=== PATIENT | female | born 1950 | race Caucasian/White ===

== ENCOUNTER 2022-01-14 10:07 | Day surgery (SDC) | payer MEDICARE, MEDICAID ==
[2022-01-14] VITALS (10 sets, daily range): BP systolic 116–178; BP diastolic 63–117
[~2022-01-14] VITALS: Ht 160 cm; Wt 132.6 kg
[~2022-01-14 10:07] MED LIST: BUDE10.2 INH; CITA20TA28 PO; CYCL-394 PO; DIVA125T13 PO; LORA-641 PO; LOSA100T57 PO; MAG SULFATE PO; METF500T PO; MOT200T PO; PER5325T PO; PROTANDIM; ZINC PO; [UNRECOGNIZED DRUG - OTHER]
[2022-01-14] MEDS ORDERED: MIDAZolam 1mg/ml 10ml vial IV ONE (10:35)
[2022-01-14] MEDS ORDERED: normal saline 1000ml 1,000 ML IV SCH (10:35)
[2022-01-14] MEDS ORDERED: fentaNYL/PF 50MCG/1 ML 2ML syringe IV ONE (10:35)
[2022-01-14] MEDS ORDERED: CARB10DR6 OP (10:53)
[2022-01-14] MEDS ORDERED: ALB0.5UD IH (10:53)
[2022-01-14] MEDS ORDERED: HYDR-3973 PO (10:53)
[2022-01-14] MEDS ORDERED: ROSU10TA28 PO (10:53)
[2022-01-14] MEDS ORDERED: TRIA16.922 BOTHNARES (10:53)
[2022-01-14] MEDS ORDERED: APIX5TAB3 PO (10:53)
[2022-01-14] MEDS ORDERED: DILT120T3 PO (10:53)
[2022-01-14] MEDS ORDERED: AZEL6DRO5 EACHEYE (10:53)
[2022-01-14] MEDS ORDERED: CELE100C98 PO (10:53)
[2022-01-14] MEDS ORDERED: [UNRECOGNIZED DRUG - MIXTURE] PO (10:53)
[2022-01-14] MEDS ORDERED: SOTA80TA73 PO (10:53)
[2022-01-14] MEDS ORDERED: LINA5TAB4 PO (10:53)
[2022-01-14 11:18] LABS: BASOPHILS # (AUTO) 0.1 X10'3 (0-0.2); BASOPHILS % (AUTO) 0.9 % (0-1); EOSINOPHILS # (AUTO) 0.5 X10'3 (0-0.9); EOSINOPHILS % (AUTO) 4.3 % (0-6); HEMOGLOBIN 13.9 g/dl (12.0-16.0); LYMPHOCYTES # (AUTO) 3.4 X10'3 (1.1-4.8); LYMPHOCYTES % (AUTO) 31.1 % (21-51); MEAN CORPUSCULAR HEMOGLOBIN 29.3 PG (27.0-31.0); MEAN CORPUSCULAR VOLUME 88.6 FL (78-98); MEAN PLATELET VOLUME 8.9 FL (7.4-10.4); MONOCYTES # (AUTO) 0.9 X10'3 (0-0.9); NEUTROPHILS # (AUTO) 6.1 X10'3 (1.8-7.7); NEUTROPHILS % (AUTO) 55.7 % (42-75); PLATELET COUNT 297 X10'3 (140-440); RED BLOOD COUNT 4.74 X10'6 (4.20-5.60); RED CELL DISTRIBUTION WIDTH 13.8 % (11.5-14.5)
[2022-01-14 11:29] LABS: ALBUMIN 3.5 G/DL (3.4-5.0); ANION GAP 11 (8-16); BLOOD UREA NITROGEN 14 MG/DL (7-18); BUN/CREATININE RATIO 14.4 (6.6-38.0); CHLORIDE 106 MMOL/L (99-107); CREATININE 0.97 MG/DL (0.40-0.90); GLUCOSE 158 MG/DL (70-104); POTASSIUM 4.6 MMOL/L (3.5-5.1); SODIUM 142 MMOL/L (135-145); TOTAL CARBON DIOXIDE 25.3 MMOL/L (24-32); eGFR 57 ML/MIN
== END 2022-01-14 14:55 | disposition home or self-care (01) ==
LOC: SSTAY O 10:07
PROVIDERS: ATTEND Student in an Organized Health Care Education/Training Program
DX: I48.91 Unspecified atrial fibrillation (principal); E11.9 Type 2 diabetes mellitus without complications; I10 Essential (primary) hypertension; Z88.0 Allergy status to penicillin; Z88.8 Allergy status to other drugs, medicaments and biological substances; Z79.899 Other long term (current) drug therapy; Z98.890 Other specified postprocedural states
CPT/HCPCS: 36415; 80048; 82948; 85025; 92960; 93005; J2250; J3010; J7030; A4620